=== PATIENT | female | born 2000 ===

== ENCOUNTER 2021-01-23 19:30 | Emergency (ER) | payer BC ==
[~2021-01-23] VITALS: Ht 167.6 cm; Wt 57.2 kg
[2021-01-23 19:39] VITALS: BP 114/72
--- NOTE | 2021-01-23 20:29 | NUR ---
PT AMBULATED TO ER BED 2
--- NOTE | 2021-01-23 20:34 | NUR ---
Note susanalley in EDM - 01/23/21 at 2214 by [email or web address] PT BIB SELF STATING SHE THINKS HER TAMPON FROM YESTERDAY IS STUCK IN HER VAGINA. PT REPORTS SHE IS CURRENTLY ON HER PERIOD, HOWEVER DOES NOT REMEMBER REMOVING HER TAMPON YESTERDAY. SHE THEN PROCEED TO INSTERT A NEW ONE TODAY, BUT EXPERIENCED PAIN UPON INSERTION. PT REPORTS +BROWN DISCHARGE WITH FOUL ODOR AND BURNING WITH URINATION. DENIES PAIN CURRENTLY. -N/V, FEVER, CHILLS. MED HX: DENIES ALLERGIES: NKA
--- NOTE | 2021-01-23 21:55 | NUR ---
ERMD AT BEDSIDE FOR PELVIC EXAM.
--- NOTE | 2021-01-23 22:00 | NUR ---
WET MT COLLECTED AND TAKEN TO LAB.
[2021-01-23] MEDS ORDERED: METR500T1 PO (22:04)
[2021-01-23] MEDS ORDERED: AZITHROMYCIN 250 MG TAB PO ONE (22:05)
[2021-01-23] MEDS ORDERED: cefTRIAXone 250 MG in LIDOCAINE MPF 1% 0.9 ML IM ONE (22:05)
[2021-01-23] MEDS ORDERED: LIDOCAINE MPF 1% 5 ML ONE (22:12)
[2021-01-23] MEDS ORDERED: cefTRIAXone 250 MG VIAL ONE (22:12)
[2021-01-23 22:17] LABS: APPEARANCE,URINE HAZY (CLEAR); BILIRUBIN,URINE NEGATIVE (NEGATIVE); BLOOD, URINE TRACE-I (NEGATIVE); COLOR,URINE YELLOW (YELLOW); LEUKOCYTE ESTERASE ,URINE 2+ (NEGATIVE); NITRITE, URINE NEGATIVE (NEGATIVE); UGLUCOSE NEGATIVE (NEGATIVE)
[2021-01-23 22:29] LABS: RBC,URINE 0-5 /HPF (0-5)
[2021-01-23 22:40] VITALS: BP 114/72
--- NOTE | 2021-01-23 22:40 | NUR ---
Patient discharged with v/s stable. Written and verbal after care instructions given and explained. Patient alert, oriented and verbalized understanding of instructions. Ambulatory with steady gait. All questions addressed prior to discharge. ID band removed. Patient advised to follow up with PMD. Rx of FLAGYL given. Patient educated on indication of medication including possible reaction and side effects. Opportunity to ask questions provided and answered.
== END 2021-01-23 22:40 | disposition home or self-care (01) ==
LOC: MED 19:30
DX: N76.0 Acute vaginitis (principal); B96.89 Other specified bacterial agents as the cause of diseases classified elsewhere; Z79.899 Other long term (current) drug therapy; Z88.1 Allergy status to other antibiotic agents
CPT/HCPCS: 36415; 81001; 81025; 87086; 87210; 87491; 96372; 99283; J0696; J2001